=== PATIENT | female | born 1985 | race Caucasian/White ===

== ENCOUNTER 2019-03-26 13:43 | Day surgery (SDC) | payer OTHER ==
[~2019-03-26 13:43] MED LIST: Buffered Lidocaine 1% SYRIN* 1 ML/SYRINGE INTRADERM ONE; Famotidine IV* 10 MG/ML 2 ML (20 mg) IV ONE; Lactated Ringers 1000 ML Bag* 1,000 ML IV SCH; Lidocaine 1% w EPI 1:200,000* SDV 30 ML VIAL ONE; Midazolam* 1 MG/ML 5 ML VIAL (5 MG) ONE; Ropivacaine 0.2% * 2 MG/ML VIAL ONE
[2019-03-26] MEDS ORDERED: ceFAZolin 2 GM PREMIX in ORs 2 GM/50 ML BAG ONE (13:54)
[2019-03-26] MEDS ORDERED: Famotidine IV* 10 MG/ML 2 ML (20 mg) ONE (13:55)
[2019-03-26] MEDS ORDERED: oxyCODONE TAB* 5 MG TAB PO PRN (14:27)
[2019-03-26] MEDS ORDERED: DiMENhydriNATE IV* 50 MG/ML VIAL IV PUSH PRN (14:27)
[2019-03-26] MEDS ORDERED: Naloxone* 0.4 MG/ML 1 ML VIAL IV PRN (14:27)
[2019-03-26] MEDS ORDERED: Acetaminophen TAB* 325 MG PO PRN (14:27)
[2019-03-26] MEDS ORDERED: fentaNYL* 50 MCG/ML 2 ML VIAL (100 MCG VIAL) ONE (14:54)
[2019-03-26] MEDS ORDERED: Propofol* 10 MG/ML 20 ML BTL ONE (15:07)
[2019-03-26] MEDS ORDERED: DiMENhydriNATE IV* 50 MG/ML VIAL ONE (15:07)
[2019-03-26] MEDS ORDERED: Ondansetron INJ* 2 MG/ML VIAL ONE (15:07)
[2019-03-26] MEDS ORDERED: Lidocaine 2% PF * 5 ML VIAL ONE (15:07)
[2019-03-26] MEDS ORDERED: Dexamethasone IV* 4 MG/ML 1 ML (4 MG) ONE (15:07)
[2019-03-26] MEDS ORDERED: Ketorolac INJ* 30 MG/ML 1 ML VIAL ONE (15:07)
[2019-03-26 16:39] VITALS: BP 104/74
--- NOTE | 2019-03-27 04:19 | OP ---
CC: Teressa SOTO NP * DATE OF OPERATION: 03/26/19 - [facility] DATE OF : 87 SURGEON: Lisa Hinton MD. [employer] OR TRAP: None available. PRE-OP DIAGNOSIS: Left knee medial meniscus tear. POST-OP DIAGNOSIS: Left knee medial meniscus tear. OPERATIVE PROCEDURE: Left knee arthroscopy with partial medial meniscectomy. COMPLICATIONS: None. ESTIMATED BLOOD LOSS: Minimal. INDICATIONS: Maritza Louise is a 33-year-old female who had a previous meniscus repair. She then subsequently injured it this summer and had a catching and locking pain. We did an MRI that demonstrated that the meniscus appeared to have torn again in a different way. After extensive discussion risks and benefits, operative procedure versus nonoperative treatment, she has elected to proceed with surgical treatment. DESCRIPTION OF PROCEDURE: The patient was greeted in the preoperative area by the attending surgeon. Correct extremity was marked and consent was confirmed. The patient was brought back to the operating suite where she was placed in supine position on the operating table. She then underwent general anesthesia and LMA intubation, after which she was appropriately positioned on the bed. The lateral post was positioned. An unsterile tourniquet was placed high on the proximal thigh. The left leg was then prepped and draped in the usual sterile fashion beginning with chlorhexidine soap, scrub, and alcohol wipe and a final prep with ChloraPrep. After appropriate surgical pause, indicating side, site, procedure, and administration of antibiotics, the knee was intra-articularly injected with 1% lidocaine with epi. After which an anterolateral portal was made using 11 blade. The scope was positioned into the joint. There was some residual scar tissue. The ACL and PCL were intact. The patellofemoral joint had grade 0 changes. The lateral gutter was intact without any loose debris. Medial gutter had evidence of the displaced meniscus tear extruding. The medial compartment was examined. There was a small area with some grade 1 changes about the medial aspect. There was also an unstable parrot-beak type tear of the medial meniscus. That was not reparable. This was then debrided back using eric and biters. The remainder of the meniscus was kept intact. The lateral compartment was examined. There were grade 0 changes and the meniscus was intact. The final images were obtained. The knee was sterilely lavaged. The wounds were copiously irrigated with sterile saline. The skin was closed with 3-0 nylon. Sterile dressings were applied. A Cryo/Cuff was applied. She was awoken from anesthesia and transferred to PACU in stable condition. POSTOPERATIVE PLAN: She will be weightbearing as tolerated with crutches for 3 to 5 days. Discharged on pain medications. DVT prophylaxis was considered, but deferred due to no previous personal or family history. I will see the patient back in 10 to 14 days. [id number]/[facility] #: [id number] MTDD
== END 2019-03-26 16:32 | disposition home or self-care (01) ==
LOC: OREAST 13:43
PROVIDERS: ATTEND Orthopaedic Surgery
DX: S83.242A Other tear of medial meniscus, current injury, left knee, initial encounter (principal); X58.XXXA Exposure to other specified factors, initial encounter; Y92.9 Unspecified place or not applicable
CPT/HCPCS: 81025; J0690; J1100; J1240; J1885; J2001; J2250; J2405; J2704; J2795; J3010